=== PATIENT | female | born 1985 | race American Indian/Alaskan Native ===

== ENCOUNTER 2016-08-09 11:14 | Inpatient (IN) | payer BC ==
[~2016-08-09] VITALS: Ht 160 cm; Wt 69.1 kg
[~2016-08-09 11:14] MED LIST: MOTRIN 600600 MG/TAB PO; PERCOCET 325 MG1 TA2 PO; PROAIR HFA0.09 MG/AC IH
[2016-08-10] VITALS (21 sets, daily range): BP systolic 99–133; BP diastolic 52–97; PULSE 64–86; TEMP 97.1–97.9
[2016-08-10 06:24] LABS: MEAN CELL VOLUME 88 fl (80.0-100.0); MEAN CORPUSCULAR HGB CONC 35 g/dl (33.0-37.0); MEAN PLATELET VOLUME 12.2 fl (7.4-10.4); PLATELET COUNT 183 K/mm3 (130-400); RED BLOOD COUNT 3.68 M/mm3 (4.10-5.30); REDCELL DISTRIBUTION WIDTH-CV 14.1 % (11.5-14.5); WHITE BLOOD COUNT 8.5 K/mm3 (4.8-10.8)
[2016-08-10 06:25] LABS: HEMATOCRIT 32.4 % (37.0-47.0); HEMOGLOBIN 11.2 g/dl (12.5-16.0); MEAN CORPUSCULAR HEMOGLOBIN 30 pg (27.0-31.0)
[2016-08-10 06:26] LABS: ADD PATHOLOGY DIFF REVIEW NO
[2016-08-10] MEDS ORDERED: ZANTAC 7575 MG PO (06:34)
[2016-08-10] MEDS ORDERED: PRENATAL1 TA7 PO (06:35)
[2016-08-10] MEDS ORDERED: SLOW FE142 MG PO (06:35)
[2016-08-10 06:57] LABS: BAND 13 % (0-10); EOSINOPHIL 3 % (0-4); NEUTROPHILS 62 % (42.0-75.2); PLATELET ESTIMATE NORMAL (NORMAL); TOTAL CELLS COUNTED 100
[2016-08-10] MEDS ORDERED: PERCOCET 325 MG1 TA2 PO (11:54)
[2016-08-10] MEDS ORDERED: MOTRIN 800800 MG/TAB PO (11:54)
[2016-08-11 04:03] VITALS: BP 109/68; PULSE 70; TEMP 98.4
[2016-08-11 08:43] VITALS: BP 118/70; PULSE 64; TEMP 97.6
[2016-08-11 11:08] LABS: BASO % 0.2 % (0.0-2.0); EOS # 0.3 (0.0-0.7); EOS % 2.9 % (0-4.0); GRAN # 7.2 (1.4-6.5); GRAN % 70.5 % (42.2-75.2); LYMPH # 1.9 (1.2-3.4); LYMPH % 18.5 % (20.0-51.0); MEAN CELL VOLUME 90 fl (80.0-100.0); MEAN CORPUSCULAR HGB CONC 33 g/dl (33.0-37.0); MEAN PLATELET VOLUME 12.3 fl (7.4-10.4); MONO # 0.7 (0.1-0.6); MONO % 6.5 % (1.7-9.3); PLATELET COUNT 157 K/mm3 (130-400); RED BLOOD COUNT 3.42 M/mm3 (4.10-5.30); REDCELL DISTRIBUTION WIDTH-CV 14.4 % (11.5-14.5); WHITE BLOOD COUNT 10.1 K/mm3 (4.8-10.8)
[2016-08-11 11:09] LABS: HEMATOCRIT 30.9 % (37.0-47.0); HEMOGLOBIN 10.2 g/dl (12.5-16.0); MEAN CORPUSCULAR HEMOGLOBIN 30 pg (27.0-31.0)
[2016-08-11 16:15] VITALS: BP 124/88; PULSE 66; TEMP 97.7
[2016-08-11 19:55] VITALS: BP 93/67; PULSE 68; TEMP 98.4
[2016-08-12 07:06] VITALS: BP 105/69; PULSE 70; TEMP 97.9
[2016-08-12] MEDS ORDERED: SENOKOT S 50 MG1 TAB PO (09:10)
== END 2016-08-12 12:40 | disposition home or self-care (01) | DRG 766 ==
LOC: OB 08-10 05:36
PROVIDERS: Obstetrics & Gynecology
PROC: 10D00Z1 Extraction of Products of Conception, Low, Open Approach (ICD-10-PCS; principal; 2016-08-10)
DX: O34.211 Maternal care for low transverse scar from previous cesarean delivery (principal); N85.8 Other specified noninflammatory disorders of uterus; O69.81X0 Labor and delivery complicated by cord around neck, without compression, not applicable or unspecified; Z3A.39 39 weeks gestation of pregnancy; Z37.0 Single live birth
CPT/HCPCS: J0690; J1885; J2270; J2370; J2405; J2704; J7120

== ENCOUNTER → 2020-08-26 | Outpatient (CLI) | payer BC ==
[~2020-08-26] MED LIST changes: +MOTRIN 800800 MG/TAB PO; +PRENATAL1 TA7 PO; +SENOKOT S 50 MG1 TAB PO; +SLOW FE142 MG PO; +ZANTAC 7575 MG PO
== END ==
LOC: COL.RAD 12:53
DX: R51.9 Headache, unspecified (principal)
CPT/HCPCS: A9585